=== PATIENT | male | born 1955 | race Caucasian/White ===

== ENCOUNTER 2022-10-31 06:04 | Day surgery (SDC) | payer OTHER, BC ==
[2022-10-23 13:21] VITALS: BMI 37.1
[2022-10-31 06:56] VITALS: RESP 16
[2022-10-31] MEDS ORDERED: methylPREDNISolone ACET (DEPO) 40 MG/1 ML VIAL ONE (07:06)
[2022-10-31] MEDS ORDERED: BUPIVACAINE HCL/PF 0.5% (5MG/ML) 10 ML VIAL ONE (07:07)
[2022-10-31] MEDS ORDERED: SODIUM CHLORIDE 0.9% P/F 10 ML VIAL IJ ONE (07:07)
[2022-10-31] MEDS ORDERED: TRIAMCINOLONE ACET 40MG/1ML VIAL ONE (07:07)
[2022-10-31] MEDS ORDERED: PROPOFOL 20 ML ONE (07:31)
[2022-10-31] MEDS ORDERED: MIDAZOLAM HCL 2 MG/2 ML SINGLE DOSE VIAL ONE (07:31)
[2022-10-31] MEDS ORDERED: ONDANSETRON 4 MG/2 ML VIAL IVPUSH PRN (07:36)
[2022-10-31] MEDS ORDERED: PROMETHAZINE HCL 25 MG/1 ML VIAL IVPB PRN (07:36)
[2022-10-31] MEDS ORDERED: oxyCODONE HCL 5 MG TABLET PO PRN (07:36)
[2022-10-31] MEDS ORDERED: LACTATED RINGERS SOLUTION 1,000 ML IV SCH (07:45)
[2022-10-31 09:26] VITALS: TEMP 98
[2022-10-31] MEDS ORDERED: RASAGILINE MESYLATE 1 MG PO SCH (10:00)
[2022-10-31] MEDS ORDERED: DOXYCYCLINE MONOHYDRATE PO SCH (10:00)
[2022-10-31] MEDS ORDERED: PATIENT'S OWN MEDICATION (NON-FORMULARY) (Omeprazole Magnesium [Prilosec Otc] 20 MG Tablet PO SCH (10:00)
[2022-10-31] MEDS ORDERED: FLUOXETINE HCL 20 MG PO SCH (10:00)
[2022-10-31] MEDS ORDERED: PATIENT'S OWN MEDICATION (NON-FORMULARY) (Ferrous Sulfate [Iron] 325 MG Tablet) PO SCH (10:00)
[2022-10-31] MEDS ORDERED: PATIENT'S OWN MEDICATION (NON-FORMULARY) (Bupropion Hcl [Wellbutrin Sr] 150 MG Tab.Sr.12h) PO SCH (10:00)
[2022-10-31 10:41] VITALS: BP 145/74; PULSE 66
[2022-10-31] MEDS ORDERED: QUEtiapine FUMARATE 300 MG TABLET PO SCH (22:00)
[2022-10-31] MEDS ORDERED: DONEPEZIL HCL 10 MG TABLET (FP) PO SCH (22:00)
== END 2022-10-31 10:35 | disposition home or self-care (01) ==
LOC: FASU 06:04
PROVIDERS: ATTEND Orthopaedic Surgery Orthopaedic Surgery of the Spine
PROC: 3E0U3GC Introduction of Other Therapeutic Substance into Joints, Percutaneous Approach (ICD-10-PCS; principal; 2022-10-31 08:29)
DX: T84.031A Mechanical loosening of internal left hip prosthetic joint, initial encounter (principal); M25.552 Pain in left hip; Y79.3 Surgical instruments, materials and orthopedic devices (including sutures) associated with adverse incidents; Y92.9 Unspecified place or not applicable; Z96.642 Presence of left artificial hip joint
CPT/HCPCS: 94760